=== PATIENT | male | born 1970 | race Caucasian/White ===

== ENCOUNTER 2022-07-20 08:53 | Emergency (ER) | payer OTHER ==
[2022-07-20 09:00] VITALS: BP 144/89; PULSE 73; RESP 18
[2022-07-20] MEDS ORDERED: PROPARACAINE 0.5% OPHTH DROPS 15 ML BTL RIGHT EYE STA (09:21)
[2022-07-20] MEDS ORDERED: FLUORESCEIN STRIPS 1 MG STRIP RIGHT EYE ONE (09:22)
[2022-07-20] MEDS ORDERED: DIPH,PERTUS(ACELL)TETVAC-LF 0.5 ML VIAL IM ONE (09:22)
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
== END 2022-07-20 11:31 | disposition home or self-care (01) ==
LOC: EC 08:53
DX: S05.01XA Injury of conjunctiva and corneal abrasion without foreign body, right eye, initial encounter (principal); T26.61XA Corrosion of cornea and conjunctival sac, right eye, initial encounter; Z23 Encounter for immunization; Y92.69 Other specified industrial and construction area as the place of occurrence of the external cause; Y99.0 Civilian activity done for income or pay; X58.XXXA Exposure to other specified factors, initial encounter
CPT/HCPCS: 90471; 90715; 99283